=== PATIENT | male | born 1960 | race Caucasian/White ===

== ENCOUNTER 2020-01-12 09:43 | Day surgery (SDC) | payer MEDICARE ==
--- NOTE | 2020-01-12 07:42 | History and Physical - [facility] ---
CHIEF COMPLAINT/HISTORY OF CHIEF COMPLAINT: This patient presents with a history of an intractable lumbar radiculopathy. Treatment history has been extensive and conservatively based. Physical therapy and biomechanical treatments have not worked. Treatment history 10-15 years. Surgical evaluation in the past, no surgery. Diagnostic studies MRI of the lumbar spine shows spinal stenosis at L4-L5, diffuse disk abnormalities and spinal stenosis at L5- S1. At L4-L5 probable nerve root impingement. PHYSICAL EXAMINATION: His examination shows pain and tenderness with ambulation which subsides and is controlled and eliminated by sitting and forward bending. Physical therapy, biomechanical treatments, behavioral and cognitive treatments, medications and pain clinic treatments have not helped. His examination is consistent with pain and tenderness along an L4-L5 pattern. There are no indications of motor or sensory abnormalities, only pain. NEUROLOGIC: Cranial nerves are intact. IMPRESSION: LUMBAR SPINAL STENOSIS WITH NEUROGENIC INTERMITTENT CLAUDICATION, ICD-10 CODE M48.062. PLAN: This patient has symptoms consistent with lumbar spinal stenosis and neurogenic intermittent claudication. The primary level appears to be L4-L5. After the failure of all conservative therapies we have discussed and reviewed interspinal spacer placement at L4-L5. The risks, side effects, and complications have all been reviewed and discussed. He has consented, he has had an opportunity to speak with a clinical specialist, and his questions have been answered. The procedure will be considered outpatient. A period of six weeks restrictions limiting bend, lift, push and pull have all been reviewed and discussed. JOB NUMBER: [id number] MTDD
[~2020-01-12 09:43] MED LIST: ACETAMINOPHEN 1,000 MG/100 ML BTL IVPB ONE; CEFAZOLIN 2 Gram 2 GM/50 ML BAG IVPB ONE; FAMOTIDINE 20MG TABLET PO ONE; MECLIZINE 25 MG TABLET PO ONE; METOCLOPRAMIDE 10 MG TABLET PO ONE
[2020-01-12] MEDS ORDERED: *PACU ONLY* KETAMINE HCL 10 MG/ML (20ML) VIAL IV ONE (09:44)
[2020-01-12] MEDS ORDERED: FENTANYL PF 100MCG/2ML VIAL IV ONE (09:44)
[2020-01-12] MEDS ORDERED: MIDAZOLAM HCL 2MG/2ML VIAL IV ONE (09:44)
[2020-01-12] MEDS ORDERED: LIDOCAINE 2% MDV (20MG/ML) 20ML VIAL IV ONE (09:44)
[2020-01-12] MEDS ORDERED: PROPOFOL 10 MG/ML VIAL IV ONE (09:44)
[2020-01-12] MEDS ORDERED: HYDROMORPHONE HCL 2 MG/ML VIAL IV ONE (09:44)
[2020-01-12] MEDS ORDERED: 0.9 % SODIUM CHLORIDE 1000ML 1,000 ML IV ONE (11:25)
--- NOTE | 2020-01-12 12:47 | RADIOLOGY REPORT ---
EXAMINATION: Lumbar Spine Two or Three Views EXAM DATE: 01/12/2020 12:33 PM TECHNIQUE: AP and lateral views INDICATION: preop COMPARISON: None ENCOUNTER: Initial FINDINGS: No acute fracture. Mild retrolisthesis of L3 on L4. Mild degenerative endplate changes at L2-3, L3-4 and L4-5. Degenerative facet changes at L4-5 and L5-S1 IMPRESSION: No acute findings. Degenerative changes, as above. Dictated by: Carl Baxter MD on 01/12/2020 12:43 PM. .
[2020-01-12] MEDS ORDERED: BUPIVACAINE 0.5% W/EPI MPF 30 ML VIAL SQ ONE (13:30)
[2020-01-12] MEDS ORDERED: LIDOCAINE 1% W/EPI 1:200,000 MPF 30ML SQ ONE (13:30)
--- NOTE | 2020-01-13 10:46 | Operative Note - [facility] ---
DATE OF SURGERY: 01/12/2020 PREOPERATIVE DIAGNOSIS: LUMBAR SPINAL STENOSIS WITH NEUROGENIC INTERMITTENT CLAUDICATION, ICD-10 CODE M48.062. OPERATION: FLUOROSCOPICALLY GUIDED PLACEMENT OF INTERSPINAL SPACER AT L4-L5. SURGEON: Harley Thacker D.O. ANESTHESIA PROVIDER: Burton Contreras CRNA INDICATION: This patient presents with lumbar spinal stenosis at L4-L5 and L5- S1 with pain pattern which extends into the legs. The activities exacerbate and worsen the pain and inactivity, sitting and bending forward reduces pain. Due to an extensive multiple year history of treatments all unsuccessful, he is here for interspinal spacer placement to distract, stabilize and reduce the pressure on the nervous system at L4-L5. The level at L5-S1 cannot be instrumented with a spinal spacer because of the lack of a spinous process at S1 for the distraction. PROCEDURE: Intravenous line, vital sign monitoring, IV sedation, prepped and draped, sterile technique. The patient was positioned on the table prone. Sterile prep, sterile technique. The spinal interspace at L4-L5 was aligned on AP and lateral imaging, skin infiltrated, a 22-gauge needle was inserted down between the spinous processes to establish midline. Using AP and lateral imaging the skin was infiltrated, and then an initial spinal interspinous dilator was placed staying posterior to the lamina. A second dilator was then placed over the first to distract the spinous processes at L4-L5. A debriding device was used to debride the interspinal ligament and then a measuring tool was used to establish a distance between the spinous process at L4 and L5 measuring 12 mm. A 12 mm interspinal spacer was then inserted, the extensions superior and inferior were extended locking into the lower margin of the spinous process of L4 and the upper margin of the spinous process of L5 and staying posterior to the lamina. The device was then gently tapped down to a position which was firmly against the lamina. The instrument was removed, antibiotic irrigation was performed. Imaging showed on AP and lateral imaging appropriate position of the spacer. The incision was closed using Vicryl for fascia and a running nylon for skin. Dressing placed. He was transported to the Recovery Room stable. No side effects from the procedure, mild soreness. DISCHARGE INSTRUCTIONS: 1. The sites are to remain clean and dry, although showering can be done if he keep the dressing dry. 2. Standard medications will be resumed. He has analgesics at home. He will take Levaquin, the antibiotic has been called by the hospital, once a day for fourteen days. 3. Office to contact the patient to set up an evaluation for his first postop in two weeks. His total period of restrictions is six weeks. There will be an evaluation every two. The first two weeks as mentioned to the patient and mother are critical for healing. He should without question adhere to the restrictions compulsively. He will be evaluated in two weeks, we will remove the suture in two weeks and evaluate his status and progress. All other instructions were provided. The numbers to contact if he has problems were given. He was then discharged. JOB NUMBER: [id number] MTDD
--- NOTE | 2020-01-13 13:54 | RADIOLOGY REPORT ---
EXAMINATION: Lumbar Spine Single View EXAM DATE: 01/12/2020 2:33 PM TECHNIQUE: Single AP view INDICATION: S/P FERTIFLEX PLACEMENT COMPARISON: None ENCOUNTER: Initial FINDINGS: There is intraspinous device at L4-L5. A mild levoconvex scoliotic curvature is suspected over the th oracolumbar spine, but evaluation is limited on this study. There is mild disc space loss throughout the lumbar spine. Mild osteophytic changes are seen from olesya tebral endplates. IMPRESSION: 1. Interspinous device at L4-L5. 2. Mild degenerative disc disease. Dictated by: Alfred Marley MD on 01/13/2020 1:51 PM. .
== END 2020-01-12 14:25 | disposition home or self-care (01) ==
LOC: SUR 09:43
PROVIDERS: ATTEND Pain Medicine Interventional Pain Medicine
DX: M48.062 Spinal stenosis, lumbar region with neurogenic claudication (principal); F17.210 Nicotine dependence, cigarettes, uncomplicated
CPT/HCPCS: 72020; 72100; C1821; J7030